=== PATIENT | female | born 1930 | race Caucasian/White ===

== ENCOUNTER 2018-01-20 14:07 | Outpatient (CLI) | payer OTHER ==
[~2018-01-20 14:07] MED LIST: CINNAMON BARK1 GM MC; COUMADIN1 MG PO; LANOXIN0.25 MG PO; TOPROL XL50 MG PO; ZARELTO PO
== END 2018-01-20 14:13 | disposition home or self-care (01) ==
LOC: RAD 14:07
DX: J20.8 Acute bronchitis due to other specified organisms (principal)